=== PATIENT | male | born 1940 | race Caucasian/White ===

== ENCOUNTER 2022-06-16 10:17 | Emergency (ER) | payer MEDICARE, BC, OTHER ==
[~2022-06-16] VITALS: Ht 172.7 cm; Wt 72.7 kg
[2022-06-16] VITALS (10 sets, daily range): BP systolic 131–157; BP diastolic 67–82
[2022-06-16] MEDS ORDERED: MEDDOSEPAK PO (13:30)
[2022-06-16] MEDS ORDERED: METHOCARBAMOL500 MG PO (13:30)
[2022-06-16] MEDS ORDERED: NAPROXEN500 MG PO (13:30)
== END 2022-06-16 13:53 | disposition home or self-care (01) ==
LOC: ED 10:17
DX: M54.16 Radiculopathy, lumbar region (principal); E11.9 Type 2 diabetes mellitus without complications